=== PATIENT | male | born 1990 | race Caucasian/White ===

== ENCOUNTER 2017-11-12 00:16 | Emergency (ER) | payer BC ==
[~2017-11-12] VITALS: Ht 177.8 cm; Wt 90.5 kg
[2017-11-12 00:26] VITALS: Ht 177.8 cm; Wt 90.5 kg
[2017-11-12] MEDS ORDERED: IBUP-103 PO (01:10)
--- NOTE | 2017-11-12 01:20 | EMERGENCY ROOM VISIT NOTE ---
ED Visit Note First contact with patient: 00:30 CHIEF COMPLAINT: Hand injury HISTORY OF PRESENT ILLNESS: This 27 yo patient presented to the emergency department after they injured the right hand after falling while rollerblading tonight. The patient rates the pain as throbbing and 5/10. The patient denies any numbness or tingling. The patient does not have injuries to the wrist. The patient has not had a previous fracture to this hand. REVIEW OF SYSTEMS: A 6 system review of systems was completed with positives and pertinent negatives in the HPI. ALLERGIES: none MEDICATIONS: none PMH: Orthopedic injuries SOCIAL HISTORY: No drug use PHYSICAL EXAM: Vital Signs: Reviewed Nurse's notes, vital signs stable. GENERAL : Pleasant male, in no acute distress, but appears to be in pain, well-developed , well-nourished. MUSCULOSKELETAL: There is no deformity of the right hand. There is tenderness between the first and second webspace. There is no thenar or hypothenar eminence atrophy. Normal thumb opposition to all fingers. Ice [employer] strength 5/5. There is no laceration. Capillary refill less than 2 seconds. No tenderness of the fingers or wrist. Full range of motion of the wrist. No snuff box tenderness. Radial pulse 2+. NEURO: Alert and oriented to person, place, and time. Normal sensation to light and sharp touch. EMERGENCY DEPARTMENT COURSE: I examined the patient. An x-ray of the right hand was reviewed by myself and my attending and shows possible nondisplaced radial styloid fracture. Patient was placed in a volar Ortho-Glass splint and neurovascular status was checked after placement and is intact. Patient was advised to follow-up with family care and/or orthopedist when he returns home tomorrow to [place] for definitive care for his wrist injury. He was given a copy of his x-ray on a Disk. He was advised to keep the splint on until cleared by the specialist. He is advised to return to the ER immediately for severe pain, numbness, tingling, worsening signs or symptoms or exam. The patient was discharged home in good condition. Differential diagnosis includes sprain, strain, fracture, dislocation and other etiologies were considered. DIAGNOSIS: #1 right wrist injury, possible fracture #2 right hand injury DISCHARGE INSTRUCTIONS: As below Current/Historical Medications Scheduled PRN Ibuprofen Tab (Advil), 200-800 MG PO Q4H PRN for Pain Allergies Coded Allergies: No Known Allergies (Unverified , 11/12/17) Vital Signs Date Time Temp Pulse Resp B/P (MAP) Pulse Ox O2 Delivery O2 Flow Rate FiO2 11/12/17 00:26 36.5 113 18 134/92 95 Room Air Departure Information Impression Primary Impression: Right wrist injury Dispostion Home / Self-Care Condition GOOD Forms WORK / SCHOOL INSTRUCTIONS, HOME CARE DOCUMENTATION FORM, IMPORTANT VISIT INFORMATION Patient Instructions My [facility], ED Fx Wrist General Additional Instructions Ibuprofen(Motrin, Advil) may be used for fever or pain. Use 600mg every six hours as needed. Take with food. Avoid using more than 2400mg in a 24 hour period. Do not use 2400mg per day for more than three consecutive days without physician direction. Prolonged inappropriate use can lead to stomach upset or ulcers. This medication can be taken if you need to drive, work, or perform activities which may be dangerous when taking narcotic pain medication. (AND/OR) Acetaminophen(Tylenol) may be used for fever or pain. Use 1000mg every six hours as needed. Avoid using more than 3000mg in a 24 hour period. This medication can be taken if you need to drive, work, or perform activities which may be dangerous when taking narcotic pain medication. Ice compresses for 20 minutes at a time four times daily for 2-3 days. Rest and elevate your injury. Do not get the splint wet. If your splint feels excessively tight, you have worsening pain, develop numbness or tingling, or your digits appear blue, loosen the barbie wrap. Then reapply the barbie wrap gently without removing the splint. If your symptoms are not quickly relieved return to the ER for re- evaluation. Continue current medications. Return to the ER immediately for any numbness, tingling, severe pain, extreme swelling in the extremity or as needed. Follow-up with your primary care doctor when you return home for further evaluation and treatment of your wrist injury.
[2017-11-12 01:36] VITALS: BP 134/92; PULSE 113; TEMP 36.5; O2SAT 96
--- NOTE | 2017-11-12 06:53 | DIAGNOSTIC IMAGING REPORT ---
R HAND MIN 3 VIEWS ROUTINE HISTORY: 27 years-old Male fall, pain acute right hand pain status post fall COMPARISON: None available TECHNIQUE: 3 views of the right hand FINDINGS: Linear ill-defined lucencies are noted involving the distal radial metaphysis which include a transversely oriented lucency on the frontal view and a longitudinally oriented lucency best seen on the oblique view which extends into the distal radial cortex. No associated displacement or angulation. Moderate wrist soft tissue swelling is present circumferentially without opaque foreign body. Mild dorsal hand soft tissue swelling is also noted. IMPRESSION: 1. Suspected acute nondisplaced distal radial fracture with intra-articular extension . 2. Moderate wrist and dorsal hand soft tissue swelling. The above report was generated using voice recognition software. It may contain grammatical, syntax or spelling errors. Electronically signed by: Case Wadsworth M.D. 11/12/2017 6:52 AM Dictated Date/Time: 11/12/2017 6:49 AM
== END 2017-11-12 01:36 | disposition home or self-care (01) ==
LOC: C.EDB 00:19
DX: S69.91XA Unspecified injury of right wrist, hand and finger(s), initial encounter (principal); W19.XXXA Unspecified fall, initial encounter; Y92.89 Other specified places as the place of occurrence of the external cause; Y93.51 Activity, roller skating (inline) and skateboarding